=== PATIENT | female | born 1995 | race Caucasian/White ===

== ENCOUNTER 2018-02-25 20:15 | Emergency (ER) | payer MEDICAID, OTHER ==
[2018-02-25 20:33] VITALS: BP 127/70; PULSE 74; RESP 15; TEMP 98.8; O2SAT 99
--- NOTE | 2018-02-25 21:01 | PD ---
HPI Chief Complaint: Related Problem Time Seen by Provider: 20:42 Travel History International Travel<30 days: No Contact w/Intl Traveler<30days: No Traveled to known affect area: No History of Present Illness HPI Patient is a 22-year-old female presenting to the emergency department for evaluation possible prolapsed cervix. Patient states she is 2 weeks , she noticed today when she was cleaning herself that it felt abnormal down there as if something was protruding. She states that she has a history of her cervix protruding after labor with her son. She denies any abdominal pain, dysuria, fever, chills. She has had occasional spotting since the . She has no other complaints at this time. She denies any pain. [facility] Past Medical History Medical History: Denies Significant Hx ?: Not Social History Alcohol Use: No Tobacco Use: No Substance Use: No Allergies-Medications (Allergen,Severity, Reaction): Coded Allergies: No Known Allergies (Unverified , 02/25/18) Review of Systems Except as stated in HPI: all other systems reviewed are Neg Genitourinary: Positive: Other Physical Exam Narrative GENERAL: Well-developed, well-nourished, alert female. Presenting in no acute distress. SKIN: Warm and dry. HEAD: Atraumatic. Normocephalic. EYES: Pupils equal and round. No scleral icterus. No injection or drainage. ENT: No nasal bleeding or discharge. Mucous membranes pink and moist. NECK: Trachea midline. No JVD. CARDIOVASCULAR: Regular rate and rhythm. RESPIRATORY: No accessory muscle use. Clear to auscultation. Breath sounds equal bilaterally. GASTROINTESTINAL: Abdomen soft, non-tender, nondistended. Hepatic and splenic margins not palpable. MUSCULOSKELETAL: Extremities without clubbing, cyanosis, or edema. No obvious deformities. NEUROLOGICAL: Awake and alert. No obvious cranial nerve deficits. Motor grossly within normal limits. Five out of 5 muscle strength in the arms and legs. Normal speech. PSYCHIATRIC: Appropriate mood and affect; insight and judgment normal. Data Data Last Documented VS Vital Signs Date Time Temp Pulse Resp B/P (MAP) Pulse Ox O2 Delivery O2 Flow Rate FiO2 02/25/18 20:33 98.8 74 15 127/70 (89) 99 Orders Orders Mandatory Outpatient Referral (02/25/18 21:27) Ed Discharge Order (02/25/18 21:27) MDM Medical Decision Making Medical Screen Exam Complete: Yes Emergency Medical Condition: Yes Interpretation(s) Vital Signs Date Time Temp Pulse Resp B/P (MAP) Pulse Ox O2 Delivery O2 Flow Rate FiO2 02/25/18 20:33 98.8 74 15 127/70 (89) 99 Differential Diagnosis Prolapsed cervix versus hematoma versus normal examination versus prolapsed uterus versus other Narrative Course Patient is a 22-year-old female who is 2 weeks presenting for evaluation of a possible prolapsed cervix. Patient's vital signs are stable, she has no other complaints. Pelvic exam was unremarkable. Patient has no OB/ [facility] in the area she is from [place]. She delivered her there. A mandatory referral was placed for outpatient follow-up. Patient was reassured at this time that there were no acute findings. She was advised on a mandatory referral placement as well. She is encouraged return to emergency department for any new or worsening symptoms. Patient stable for discharge. Diagnosis Primary Impression: Pelvic abnormality in , condition Referrals: [facility] Patient Instructions: General Instructions, Pelvic Pain in Women (GEN), Pelvic Rest (ED) Additional Instructions: Follow-up with [facility], a mandatory referral has been placed for you Pelvic rest until cleared by [facility] Do not lift anything heavier than your Return to emergency department for any new or worsening symptoms Med/Other Pt SpecificInfo: No Change to Meds Disposition: 01 DISCHARGE HOME Condition: Stable Natalie Diaz Danielle CHOW February 25, 2018 21:01
== END 2018-02-25 21:57 | disposition home or self-care (01) ==
LOC: NEPD 20:15
DX: O90.89 Other complications of the puerperium, not elsewhere classified (principal)
CPT/HCPCS: 99282